=== PATIENT | male | born 1980 | race Caucasian/White ===

== ENCOUNTER 2016-10-05 14:12 | Emergency (ER) | payer BC ==
[2016-10-05 14:25] VITALS: BP 142/92
[2016-10-05] MEDS ORDERED: cefTRIAXone 1 GM Vial IM ONE (14:47)
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
[2016-10-05] MEDS ORDERED: Ketorolac 10 MG Tab PO ONE (15:48)
[2016-10-05] MEDS ORDERED: Amoxicillin 500 MG Cap PO ONE (15:48)
== END 2016-10-05 16:00 | disposition home or self-care (01) ==
LOC: KA.ED 14:12
DX: K05.219 Aggressive periodontitis, localized, unspecified severity (principal); K02.9 Dental caries, unspecified; F17.210 Nicotine dependence, cigarettes, uncomplicated
CPT/HCPCS: 36415; 70150; 85025; 96372; 99282; A9270; J0696

== ENCOUNTER 2018-06-10 00:58 | Emergency (ER) | payer BC ==
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
[2018-06-10 03:00] VITALS: BP 160/90
== END 2018-06-10 02:04 ==
LOC: KA.ED 00:58
DX: F10.920 Alcohol use, unspecified with intoxication, uncomplicated (principal); Z02.89 Encounter for other administrative examinations; Y90.8 Blood alcohol level of 240 mg/100 ml or more
CPT/HCPCS: 36415; 80305-QW; 99283; G0480

== ENCOUNTER 2022-05-27 16:52 | Emergency (ER) | payer BC, OTHER ==
[2022-05-27 17:10] VITALS: BP 148/89; PULSE 103
[2022-05-27] MEDS ORDERED: Diphtheria,Pertussis(Acell),Tetanus Vaccine 0.5 ML Syringe IM ONE (17:28)
== END 2022-05-27 17:50 | disposition home or self-care (01) ==
LOC: KA.ED 16:52
DX: S61.303A Unspecified open wound of left middle finger with damage to nail, initial encounter (principal); Z23 Encounter for immunization; W23.0XXA Caught, crushed, jammed, or pinched between moving objects, initial encounter; Y92.89 Other specified places as the place of occurrence of the external cause; Y99.0 Civilian activity done for income or pay
CPT/HCPCS: 73120-LT; 90471; 90715; 99283; 99283-25